=== PATIENT | male | born 1940 | race Caucasian/White ===

== ENCOUNTER 2017-11-01 09:39 | Day surgery (SDC) | payer OTHER ==
[2017-10-31 17:26] VITALS: BMI 25.0
--- NOTE | 2017-11-01 10:54 | HP ---
History & Physical Update - History History: No Change - Physical Physical: No Change - Assessment Assessment: No Change - Plan Plan: No Change
[2017-11-01] MEDS ORDERED: ACETAMINOPHEN 1000 MG/100 ML VIAL (NON FORMULARY) IVPB ONE (10:56)
[2017-11-01] MEDS ORDERED: IBUPROFEN 800 MG/8 ML IJ IVPB SCH (11:00)
[2017-11-01] MEDS ORDERED: DEXTROSE 5%-0.45% SALINE 1,000 ML IV SCH (11:00)
[2017-11-01] MEDS ORDERED: ceFAZolin SODIUM 1 GM VIAL ONE (11:23)
[2017-11-01] MEDS ORDERED: ceFAZolin SODIUM 1 GM VIAL IVPB ONE (11:30)
[2017-11-01] MEDS ORDERED: ACETAMINOPHEN INJECTION 100 ML IVPB ONE (12:29)
[2017-11-01 12:53] VITALS: TEMP 98
[2017-11-01 14:12] VITALS: BP 139/77; PULSE 52
--- NOTE | 2017-11-02 06:51 | OP ---
DATE OF OPERATION: 11/01/2017 PREOPERATIVE DIAGNOSIS: Bladder mass. POSTOPERATIVE DIAGNOSIS: Bladder mass. PROCEDURE: Cystoscopy, transurethral resection of bladder tumor. SPECIMEN: Portions of bladder tumor. ESTIMATED BLOOD LOSS: 10 mL. DRAINS: A Chung catheter. SURGEON: Flaquito Chicas MD ANESTHESIA: Spinal, no sedation. ANESTHESIOLOGIST: Tasia Espinosa DO PREOPERATIVE INDICATIONS: The patient is a 77-year-old male with a history of BPH who has had 2 TURPs in the past. He comes to the office with complaints of gross hematuria. On cystoscopy it was noted that there was an edematous mass at the 12 o'clock position of the bladder neck. This was extending into the bladder. It was unclear at the time of cystoscopy whether this was merely extension of his enlarged prostate into the bladder or a distinct bladder tumor. He comes to the OR today for a biopsy and resection. OPERATION: Patient was brought to the OR, placed on the table in the supine position, given spinal anesthesia, placed in the modified lithotomy position. The groin was prepped and draped sterilely. Timeout was performed. Patient did not have any sensation. Cystoscopy was performed. The distal urethra and sphincter were normal, but the prostate, the lining of the prostate was very vascular. However, no bleeding was occurring at the time. The bladder itself, the UOs were visualized. Clear efflux was seen. No tumors or stones were seen. The mass at the 12 o'clock position was visualized. Again it appeared to be edematous and during cystoscopy appeared more to be extension of the prostate tissue anteriorly rather than distinct bladder tumor. However, it did appear different in appearance from the adjacent prostate. The area was resected and portions were sent for histopathology. Everything was fulgurated and a 22-Mac[place] Chung catheter was left in place. Patient was woken up. Rose [id number]
--- NOTE | 2017-11-02 11:31 | PATH ---
Surgical Pathology Report Patient Name: RUBY SAUNDERS [facility]. Rec. #: [id number] /Age/Gender: 1940 (Age: 77) / M Account: [id number] Location: [facility] SURGICAL Taken: 11/01/2017 Received: 11/01/2017 Reported: 11/02/2017 Physicians: Flaquito Chicas M.D. Specimen(s) Received BLADDER TUMOR Clinical History Bladder neck obstruction Final Diagnosis BLADDER TUMOR, EXCISION: FRAGMENTS OF BENIGN PROSTATE TISSUE SHOWING CHRONIC PROSTATITIS, GLANDULAR AND STROMAL HYPERPLASIA, ADJACENT UROTHELIAL MUCOSA SHOWING PREDOMINANTLY CHRONIC, FOCALLY ACUTE CYSTITIS WITH CYSTITIS CYSTICA AND CYSTITIS GLANDULARIS. Electronically Signed Farrukh Morgan M.D. Gross Description Received in formalin labeled "bladder tumor," are 4 mary, rubbery fragments of tissue ranging from 0.5-0.9 cm in greatest dimension. The specimens are submitted in toto in one cassette. /11/01/201711/01/2017
== END 2017-11-01 14:00 | disposition home or self-care (01) ==
LOC: JASU-SURG 09:39
PROVIDERS: ATTEND Urology
PROC: 0TBC8ZZ Excision of Bladder Neck, Via Natural or Artificial Opening Endoscopic (ICD-10-PCS; principal; 2017-11-01 11:00)
DX: N30.00 Acute cystitis without hematuria (principal); N30.80 Other cystitis without hematuria; N41.1 Chronic prostatitis
CPT/HCPCS: 88305-TC; 94760; J0131

== ENCOUNTER 2021-05-13 17:12 | Inpatient (IN) | payer OTHER ==
[2021-05-13 19:10] LABS: BASO % 0.5 % (0-2.0); EOS % 0.2 % (0-4.5); HEMATOCRIT 45.8 % (35.4-49); HEMOGLOBIN 15.8 GM/dL (11.7-16.9); LYMPH % 7.6 % (8-40); MCH 33.8 pg (25.7-33.7); MCHC 34.5 g/dl (32.0-35.9); MEAN CELL VOLUME 97.9 fl (80-96); MEAN PLT VOLUME 7.8 fl (7.5-11.1); MONO % 6.9 % (3.8-10.2); NEUT % 84.8 % (42.8-82.8); PLATELET COUNT 248 10^3/uL (134-434); RBC 4.68 M/mm3 (4.00-5.60); RDW 13.7 % (11.9-15.9); WHITE BLOOD COUNT 13.5 K/mm3 (4.0-10.0)
[2021-05-13 19:31] LABS: BLOOD UREA NITROGEN 16.6 mg/dL (7-18); CALCIUM 9.2 mg/dL (8.5-10.1)
[2021-05-13 19:36] LABS: BILIRUBIN,TOTAL 1.1 mg/dL (0.2-1); TOT PROT 6.4 g/dl (6.4-8.2)
[2021-05-13 21:57] LABS: BILIRUBIN,DIRECT 0.3 mg/dL (0.0-0.2)
[2021-05-13 22:05] LABS: RETICULOCYTES 1.99 % (0.5-1.5)
[2021-05-13] MEDS ORDERED: CEFTRIAXONE 1 GM in DEXTROSE 5%-WATER - 50 ML IVPB ONE (22:15)
[2021-05-14] MEDS ORDERED: CEFTRIAXONE 1 GM/50 ML BAG ONE (00:14)
[2021-05-14 02:42] LABS: EPI CELLS 3 /uL (0-25.1); HYALINE CASTS 65 /uL (0-3.1); URINE APPEARANCE TURBID; URINE BILIRUBIN 2+ (NEGATIVE); URINE COLOR RED; URINE GLUCOSE (UA) NEGATIVE (NEGATIVE); URINE KETONE NEGATIVE (NEGATIVE); URINE LEUK ESTERASE 2+ (NEGATIVE); URINE NITRITE POSITIVE (NEGATIVE); URINE PROTEIN 1+ (NEGATIVE); URINE RBC 26542 /uL (0-23.9); URINE UROBILINOGEN 0.2 mg/dL (0.2-1.0); URINE WBC 77 /uL (0-25.8)
[2021-05-14 04:19] VITALS: BMI 23.2
[2021-05-14 08:32] LABS: BASO % 0.6 % (0-2.0); EOS % 0.5 % (0-4.5); HEMATOCRIT 42.9 % (35.4-49); HEMOGLOBIN 15.1 GM/dL (11.7-16.9); LYMPH % 9.7 % (8-40); MCH 34.5 pg (25.7-33.7); MCHC 35.1 g/dl (32.0-35.9); MEAN CELL VOLUME 98.5 fl (80-96); MEAN PLT VOLUME 7.8 fl (7.5-11.1); MONO % 8.9 % (3.8-10.2); NEUT % 80.3 % (42.8-82.8); PLATELET COUNT 218 10^3/uL (134-434); RBC 4.36 M/mm3 (4.00-5.60); RDW 13.6 % (11.9-15.9); WHITE BLOOD COUNT 14.1 K/mm3 (4.0-10.0)
[2021-05-14 09:07] LABS: ALBUMIN 3.5 g/dl (3.4-5.0); BLOOD UREA NITROGEN 14.6 mg/dL (7-18); CALCIUM 8.9 mg/dL (8.5-10.1)
[2021-05-14 09:10] LABS: BILIRUBIN,DIRECT 0.4 mg/dL (0.0-0.2); CREATININE 0.9 mg/dL (0.55-1.3)
[2021-05-14 09:12] LABS: BILIRUBIN,TOTAL 1.5 mg/dL (0.2-1); TOT PROT 5.8 g/dl (6.4-8.2)
[2021-05-14] MEDS ORDERED: LISINOPRIL 10 MG TABLET PO SCH (10:00)
[2021-05-14] MEDS ORDERED: metoPROLOL SUCCINATE 25 MG TAB.SR.24H (FP) PO SCH (10:00)
[2021-05-14] MEDS ORDERED: MULTIVITAMINS (DAILY MVI) TABLET (FP) PO SCH (10:00)
[2021-05-14] MEDS ORDERED: CEFTRIAXONE 1 GM in DEXTROSE 5%-WATER - 50 ML IVPB SCH (12:00)
[2021-05-14] MEDS ORDERED: DEXTROSE 5%-WATER - 50 ML IVPB ONE (15:23)
[2021-05-14] MEDS ORDERED: cefTRIAXone SODIUM 1 GM VIAL ONE (15:23)
[2021-05-14] MEDS ORDERED: ONDANSETRON 4 MG/2 ML VIAL IVPUSH PRN ×2 (17:46→19:39)
[2021-05-14] MEDS ORDERED: PROPOFOL 20 ML ONE (17:53)
[2021-05-14] MEDS ORDERED: ceFAZolin SODIUM 1 GM VIAL IVPB ONE (17:54)
[2021-05-14] MEDS ORDERED: LACTATED RINGERS SOLUTION 1,000 ML IV SCH ×2 (18:00→19:39)
[2021-05-15 08:44] LABS: BASO % 0.8 % (0-2.0); EOS % 1.1 % (0-4.5); HEMATOCRIT 39.6 % (35.4-49); HEMOGLOBIN 13.6 GM/dL (11.7-16.9); LYMPH % 6.6 % (8-40); MCH 33.8 pg (25.7-33.7); MCHC 34.3 g/dl (32.0-35.9); MEAN CELL VOLUME 98.5 fl (80-96); MEAN PLT VOLUME 8.2 fl (7.5-11.1); NEUT % 81.5 % (42.8-82.8); PLATELET COUNT 218 10^3/uL (134-434); RBC 4.03 M/mm3 (4.00-5.60); RDW 13.6 % (11.9-15.9); WHITE BLOOD COUNT 14.2 K/mm3 (4.0-10.0)
[2021-05-15 09:07] LABS: ALBUMIN 3.1 g/dl (3.4-5.0); CALCIUM 8.7 mg/dL (8.5-10.1)
[2021-05-15 09:10] LABS: CREATININE 0.9 mg/dL (0.55-1.3)
[2021-05-15 09:12] LABS: BILIRUBIN,TOTAL 1.6 mg/dL (0.2-1); TOT PROT 5.3 g/dl (6.4-8.2)
[2021-05-15] MEDS ORDERED: CEFTRIAXONE 1 GM in DEXTROSE 5%-WATER - 50 ML IVPB SCH (10:00)
[2021-05-15] MEDS ORDERED: MULTIVITAMINS (DAILY MVI) TABLET (FP) PO SCH (10:00)
[2021-05-15] MEDS ORDERED: CEFTRIAXONE 1 GM in DEXTROSE 5%-WATER - 50 ML IVPB ONE (10:00)
[2021-05-15] MEDS ORDERED: metoPROLOL SUCCINATE 25 MG TAB.SR.24H (FP) PO SCH (10:00)
[2021-05-15] MEDS ORDERED: LISINOPRIL 10 MG TABLET PO SCH (10:00)
[2021-05-15 13:00] LABS: INR 1.26 (0.83-1.09); PROTHROMBIN TIME (PATIENT) 14.5 SEC (9.7-13.0)
[2021-05-15 13:03] LABS: ACTIVATED PTT 30.8 SECONDS (25.2-36.5)
[2021-05-15 14:44] VITALS: BP 141/80; PULSE 75; TEMP 98.8
== END 2021-05-15 16:02 | disposition home or self-care (01) | DRG 713 ==
LOC: JER 17:12 → INTOOBSV 20:20 → JERBED 20:20 → J6S 05-14 03:58 → OBSVTOIN 05-14 11:20
PROVIDERS: ADMIT Internal Medicine; ATTEND Internal Medicine
PROC: 0TCB8ZZ Extirpation of Matter from Bladder, Via Natural or Artificial Opening Endoscopic (ICD-10-PCS; 2021-05-14)
PROC: 0VT08ZZ Resection of Prostate, Via Natural or Artificial Opening Endoscopic (ICD-10-PCS; principal; 2021-05-14 16:00)
PROC: 0V508ZZ Destruction of Prostate, Via Natural or Artificial Opening Endoscopic (ICD-10-PCS; 2021-05-14 16:00)
DX: N40.1 Benign prostatic hyperplasia with lower urinary tract symptoms (principal); N39.0 Urinary tract infection, site not specified; R33.8 Other retention of urine; I10 Essential (primary) hypertension; E78.5 Hyperlipidemia, unspecified; R31.0 Gross hematuria; I44.7 Left bundle-branch block, unspecified; R74.01 Elevation of levels of liver transaminase levels; N28.1 Cyst of kidney, acquired; K76.0 Fatty (change of) liver, not elsewhere classified; N32.3 Diverticulum of bladder; N32.89 Other specified disorders of bladder
CPT/HCPCS: 36415; 76700-TC; 76775-TC; 76856-TC; 80053; 81003; 82248; 83010; 83615; 85025; 85045; 85610; 85730; 87086; 88305-TC; 93005; 93010; 94010; 94760; 99285-25; C9803-CS; G0378; U0003; U0005